=== PATIENT | male | born 1955 | race Caucasian/White ===

== ENCOUNTER → 2016-08-03 | Outpatient (CLI) | payer OTHER ==
[2016-08-03 14:33] VITALS: BP 150/67; PULSE 60; RESP 16; TEMP 98.4; BMI 50.3
[2016-08-03 15:45] LABS: EKG EKG PERFORMED
[2016-08-03 16:03] LABS: CH 27.9; CHCM 32.4; HCT 43.8 % (39.0-53.0); HDW 3.11; HGB 13.9 gm/dL (13.0-17.5); Hypochromasia Slight; MCH 27.5 pg (25.0-35.0); MCHC 31.8 g/dL (31.0-37.0); MCV 86.4 fL (80.0-100.0); Mean Platelet Volume 6.9; RBC 5.07 m/uL (4.30-5.90); RDW 14.6 % (11.5-15.5); WBC 6.5 k/uL (3.8-10.6)
[2016-08-03 16:27] LABS: ALT 37 U/L (21-72); AST 21 U/L (17-59); Alkaline Phosphatase 96 U/L (38-126); Anion Gap 8 mmol/L; Blood Urea Nitrogen 18 mg/dL (9-20); Calcium 9.8 mg/dL (8.4-10.2); Carbon Dioxide 27 mmol/L (22-30); Chloride 107 mmol/L (98-107); Cholesterol 124 mg/dL (<200); Glucose 152 mg/dL (74-99); HDL Cholesterol 31 mg/dL (40-60); Iron 62 ug/dL (49-181); Non-African American GFR(MDRD) >60 (>60 ml/min/1.73 sqM); Potassium 5.1 mmol/L (3.5-5.1); Sodium 142 mmol/L (137-145); Total Bilirubin 0.5 mg/dL (0.2-1.3); Total Protein 6.9 g/dL (6.3-8.2); Triglycerides 127 mg/dL (<150)
[2016-08-03 16:36] LABS: Total Iron Binding Capacity 331 ug/dL (261-462)
[2016-08-03 16:37] LABS: % Iron Saturation 18.7 % (20-50)
[2016-08-03 17:29] LABS: Vitamin B12 466 pg/mL (239-931)
[2016-08-03 20:56] LABS: Hemoglobin A1C 9.1 % (4.2-6.1)
--- NOTE | 2016-08-30 15:29 | P.PN ---
Progress Note - Text DATE OF CONSULTATION: 08/30/2016 REASON FOR CONSULTATION: Initial bariatric evaluation. HISTORY OF PRESENT ILLNESS: The patient is a 60-year-old male who presents with a long-standing history of morbid obesity. At his height of 5 foot 8.5, his ideal body weight is 163 pounds. Today he comes at 335 pounds. His highest personal weight is 350 pounds. He is 172 pounds overweight. Her personal goal is to get down to 180 pounds. He has tried dieting on his own including drinking specialty drinks. He has lost as much as 50 pounds. He has regained all of his weight. He has developed insulin dependent diabetes between 5-10 years now. He is also developed obstructive sleep apnea. He states that obesity runs in his family. He reports developing lower back pain including knee pain from his weight. He has also developed obstructive sleep apnea He has tried weight loss with minimal success with caloric restriction. He comes in with troubles with family history of gallbladder disease and a sister as well as his mother. He has family history of Crohn's disease and his nephew. He denies any personal history of chronic diarrhea. He denies gastrointestinal cancer, DVTs or pulmonary embolisms. He comes in for evaluation for a Miller-en- Y gastric bypass. PAST MEDICAL HISTORY: 1. Insulin-dependent diabetes type 2. 2. Hypertensive heart disease. 3. Morbid obesity. 4. Osteoarthritis of the bilateral hips. 5. Osteoarthritis of the bilateral knees. 6. Hyperlipidemia. 7. Obstructive sleep apnea. PAST SURGICAL HISTORY: 1. Denies any upper endoscopies. 2. Denies any abdominal surgeries. HOME MEDICATIONS: 1. Lasix. 2. Amlodipine/Olmesartan 3. Metoprolol. 4. Lantus. 5. Glargine. 6. NovoLog. 7. Lipitor. ALLERGIES: None. SOCIAL HISTORY: No active tobacco use. FAMILY HISTORY: Denies any DVTs, pulmonary embolisms in family. Denies any ulcerative colitis disease. Has Crohn's in his nephew. Family history of gallbladder disease. Family history of morbid obesity. REVIEW OF ORGAN SYSTEMS: CONSTITUTIONAL: At his height of 5 foot 8.5, his ideal body weight is 163 pounds. Today he comes at 335 pounds. His highest personal weight is 350 pounds. He is 172 pounds overweight. HEENT: Denies any active troubles with vision or hearing. ENDOCRINE: Has diabetes. No hypothyroidism. CARDIOVASCULAR: No reports of palpitations or heart attacks or chest pain. He is on 3 different medications to control blood pressure. RESPIRATORY: Has daytime somnolence including snoring. Has obstructive sleep apnea. No recent asthma. GI: Denies any bright red blood per rectum, diarrhea or constipation. Has intermittent heartburn. MUSCULOSKELETAL: Describes generalized muscle aches. Has osteoarthritis of the knees. NEURO: There were no reports of headaches or seizure disorders. PSYCH: No depression. No suicidal ideation. No anxiety. HEMATOLOGIC: Denies any abnormal bleeding or bruising. PHYSICAL EXAM: VITAL SIGNS: height 5 foot 8.5 inches, weight 335 pounds. BMI 50.3. Vital Signs Temp 98.4 F 08/03/16 14:28 Pulse 60 08/03/16 14:28 Resp 16 08/03/16 14:28 BP 150/67 08/03/16 14:28 Pulse Ox GENERAL: Well-developed male in no acute distress. HEENT: No scleral icterus. Extraocular was grossly intact. No nasal drainage. NECK: Supple without lymphadenopathy. CHEST: Nonlabored respirations with equal bilateral excursions. CARDIOVASCULAR: Regular rate. Distal 2+ pulses. ABDOMEN: Obese, soft, nontender, nondistended. MUSCULOSKELETAL: No clubbing, cyanosis. Gross strength 5/5 distal lower extremities. 2+ pitting edema. NEURO: No focal or lateralizing signs. Cranial nerves 2 through 12 grossly within normal limits. PSYCH: Appropriate affect. Alert and oriented to person, place and time. ASSESSMENT: 1. Morbid obesity due to excess calories. 2. Body mass index of 50.3. 3. Insulin-dependent diabetes type 2. 4. Hypertensive heart disease with cardiomyopathy. 5. Hyperlipidemia. 6. Family history of gallbladder disorder. 7. Family history of Crohn's disease. 8. Family history of morbid obesity. 9. Osteoarthritis of the bilateral knees. 10. Obstructive sleep apnea. 11. Vitamin D deficiency. PLAN: 1. I have recommended that he proceed with an upper endoscopy as he has history of reflux disease. 2. Per insurance guidelines, medical supervised weight loss was described. Also recommend food and exercise journal. 3. Recommend a bariatric metabolic panel to evaluate for micro, including macronutrient deficiencies. 4. Dietary surveillance and counseling was reviewed. I have asked her to increase protein intake to at least 75 grams daily. 5. Recommend follow-up after upper endoscopy. 6. Recommend cardiac risks assessment and disease in at least 3 different medications to control blood pressure. 7. Recommend medical risk assessment. 8. Psych assessment per insurance guidelines. 9. The [place] bariatric surgery collaborative data including benefits and risks of the sleeve, band, Miller-en-Y gastric bypass were described in detail. Co-morbidity resolution was also reviewed. Complications of each was also reviewed. Patient has elected for evaluation of a gastric bypass. Thank you for this consultation. Laboratory Last Values WBC 6.5 k/uL (3.8-10.6) 08/03/16 15:39 RBC 5.07 m/uL (4.30-5.90) 08/03/16 15:39 Hgb 13.9 gm/dL (13.0-17.5) 08/03/16 15:39 Hct 43.8 % (39.0-53.0) 08/03/16 15:39 MCV 86.4 fL (80.0-100.0) 08/03/16 15:39 MCH 27.5 pg (25.0-35.0) 08/03/16 15:39 MCHC 31.8 g/dL (31.0-37.0) 08/03/16 15:39 RDW 14.6 % (11.5-15.5) 08/03/16 15:39 Plt Count 280 k/uL (150-450) 08/03/16 15:39 Hypochromasia Slight 08/03/16 15:39 Sodium 142 mmol/L (137-145) 08/03/16 15:39 Potassium 5.1 mmol/L (3.5-5.1) 08/03/16 15:39 Chloride 107 mmol/L (98-107) 08/03/16 15:39 Carbon Dioxide 27 mmol/L (22-30) 08/03/16 15:39 Anion Gap 8 mmol/L 08/03/16 15:39 BUN 18 mg/dL (9-20) 08/03/16 15:39 Creatinine 1.00 mg/dL (0.66-1.25) 08/03/16 15:39 Est GFR (MDRD) Af Amer >60 (>60 ml/min/1.73 sqM) 08/03/16 15:39 Est GFR (MDRD) Non-Af >60 (>60 ml/min/1.73 sqM) 08/03/16 15:39 Glucose 152 mg/dL (74-99) H 08/03/16 15:[address] Glu mg/dL 214 mg/dL 08/03/16 15:39 Hemoglobin A1c 9.1 % (4.2-6.1) H 08/03/16 15:39 Calcium 9.8 mg/dL (8.4-10.2) 08/03/16 15:39 Iron 62 ug/dL (49-181) 08/03/16 15:39 TIBC 331 ug/dL (261-462) 08/03/16 15:39 % Saturation 18.7 % (20-50) L 08/03/16 15:39 Ferritin 69 ng/mL (18-464) 08/03/16 15:39 Total Bilirubin 0.5 mg/dL (0.2-1.3) 08/03/16 15:39 AST 21 U/L (17-59) 08/03/16 15:39 ALT 37 U/L (21-72) 08/03/16 15:39 Alkaline Phosphatase 96 U/L (38-126) 08/03/16 15:39 Total Protein 6.9 g/dL (6.3-8.2) 08/03/16 15:39 Albumin 4.2 g/dL (3.5-5.0) 08/03/16 15:39 Triglycerides 127 mg/dL (<150) 08/03/16 15:39 Cholesterol 124 mg/dL (<200) 08/03/16 15:39 LDL Cholesterol, Calc 68 mg/dL (0-99) 08/03/16 15:39 HDL Cholesterol 31 mg/dL (40-60) L 08/03/16 15:39 Vitamin B1 78 ug/L (38-122) 08/03/16 15:39 Vitamin B12 466 pg/mL (239-931) 08/03/16 15:39 Vitamin D 25-Hydroxy 18.8 ng/mL (30.0-100.0) L 08/03/16 15:39 Folate >20.00 ng/mL (>2.75) 08/03/16 15:39 TSH 1.270 mIU/L (0.465-4.680) 08/03/16 15:39 EKG EKG PERFORMED 08/03/16 15:39
== END | disposition home or self-care (01) ==
LOC: BARWHC3 13:47
PROVIDERS: ATTEND Surgery Plastic and Reconstructive Surgery
DX: Z48.815 Encounter for surgical aftercare following surgery on the digestive system (principal); E66.01 Morbid (severe) obesity due to excess calories; E11.9 Type 2 diabetes mellitus without complications; I11.9 Hypertensive heart disease without heart failure; I42.9 Cardiomyopathy, unspecified; E78.5 Hyperlipidemia, unspecified; G47.33 Obstructive sleep apnea (adult) (pediatric); M17.0 Bilateral primary osteoarthritis of knee; E44.0 Moderate protein-calorie malnutrition; G47.30 Sleep apnea, unspecified; D50.8 Other iron deficiency anemias; E89.1 Postprocedural hypoinsulinemia; E55.9 Vitamin D deficiency, unspecified; Z68.43 Body mass index [BMI] 50.0-59.9, adult; Z98.84 Bariatric surgery status; Z79.4 Long term (current) use of insulin; Z79.899 Other long term (current) drug therapy
CPT/HCPCS: 80053; 80061; 82306; 82607; 82728; 82746; 83036; 83540; 83550; 84425; 84443; 85027; 93005; 99201

== ENCOUNTER 2019-07-13 07:20 | Inpatient (IN) | payer MEDICAID, OTHER ==
--- NOTE | 2019-07-13 07:35 | ED ---
General Adult HPI - General Chief complaint: Shortness of Breath Stated complaint: Pneumonia Time Seen by Provider: 07/13/19 07:21 Source: patient, RN notes reviewed, old records reviewed (Reviewed records from [facility]) Mode of arrival: EMS Limitations: no limitations - History of Present Illness Initial comments: Patient is a pleasant 63-year-old male presenting to the emergency Department as a transfer from [facility]. Patient was transferred with concern for viral pneumonia. Chest x-ray shows bilateral lower infiltrates. Patient had O2 saturation of 84%. Patient complains of dyspnea over the past few days. Patient does have mild cough with clear sputum. Patient denies fevers. No chest pain. Patient does have some leg swelling however this is chronic and improved with Lasix provided prior to transfer. Patient was also given Rocephin and azithromycin prior to transfer. A portable he was tested negative for buckley virus - Related Data Home Medications Medication Instructions Recorded Confirmed Atorvastatin [Lipitor] 80 mg PO DAILY 08/03/16 08/04/16 Furosemide [Lasix] 40 mg PO DAILY 08/03/16 08/04/16 Insulin Aspart [NovoLOG Flexpen] 25 units SQ AC-TID 08/03/16 08/04/16 Insulin Glargine [Lantus] 55 unit SQ BID 08/03/16 08/04/16 Metoprolol Tartrate [Lopressor] 200 mg PO BID 08/03/16 08/04/16 amLODIPine BES/OLMESARTAN MED 1 each PO DAILY 08/03/16 08/04/16 [amLODIPine BES/OLMESARTAN MED 10-20 mg] Insulin Degludec [Tresiba 100 unit SQ DAILY 08/04/16 08/04/16 Flextouch U-200] Allergies Allergy/AdvReac Type Severity Reaction Status Date / Time No Known Allergies Allergy Verified 08/03/16 14:54 Review of Systems ROS Statement: Those systems with pertinent positive or pertinent negative responses have been documented in the HPI. ROS Other: All systems not noted in ROS Statement are negative. Constitutional: Denies: fever Eyes: Denies: eye pain ENT: Denies: ear pain Respiratory: Reports: cough, dyspnea Cardiovascular: Denies: chest pain Endocrine: Denies: fatigue Gastrointestinal: Denies: abdominal pain Genitourinary: Denies: dysuria Musculoskeletal: Denies: back pain Skin: Denies: rash Neurological: Denies: weakness Past Medical History Past Medical History: Diabetes Mellitus, Hyperlipidemia, Hypertension, Pneumonia, Sleep Apnea/CPAP/BIPAP History of Any Multi-Drug Resistant Organisms: None Reported Past Surgical History: Appendectomy Past Anesthesia/Blood Transfusion Reactions: No Reported Reaction Past Psychological History: No Psychological Hx Reported Smoking Status: Never smoker Past Alcohol Use History: None Reported Past Drug Use History: None Reported - Past Family History Mother Family Medical History: Cancer Additional Family Medical History / Comment(s): ovarian ca General Exam Limitations: no limitations General appearance: alert, in no apparent distress Head exam: Present: normocephalic Eye exam: Present: normal appearance Neck exam: Present: normal inspection Respiratory exam: Present: decreased breath sounds. Absent: respiratory distress Cardiovascular Exam: Present: regular rate, normal rhythm GI/Abdominal exam: Present: soft. Absent: tenderness Extremities exam: Present: pedal edema (+3 bilateral). Absent: calf tenderness Back exam: Present: normal inspection Neurological exam: Present: alert Psychiatric exam: Present: normal affect, normal mood Skin exam: Present: normal color Medical Decision Making - Medical Decision Making Despite negative testing there is still concern for coronavirus. Case was discussed in detail with Dr. Anthony, who will admit covering for Dr. Wilson. Patient is made aware of plan. Cardiology will also be placed on consult for component of congestive heart failure. Disposition Clinical Impression: Pneumonia, Congestive heart failure Disposition: ADMITTED IP TO THIS HOSP Is patient prescribed a controlled substance at d/c from ED?: No Referrals: Lani Pierre MD [Primary Care Provider] - 1-2 days Decision Time: 07:40
[2019-07-13] MEDS ORDERED: IPRATROPIUM-ALBUTEROL 3 ML NEB INHALATION PRN (07:40)
[2019-07-13] MEDS ORDERED: PNEUMONIA PROTOCOL UTILIZED 1 EACH MISC PO PRN (07:40)
[2019-07-13] MEDS ORDERED: ASPIRIN 325 MG TAB PO STA (07:40)
[2019-07-13 07:51] LABS: Glucose,Whole Blood 309 mg/dL (75-99)
[2019-07-13 08:32] LABS: C Reactive Protein 8.5 mg/L (<10.0); Magnesium 1.9 mg/dL (1.6-2.3)
--- NOTE | 2019-07-13 08:55 | XR ---
EXAMINATION TYPE: XR chest 1V portable DATE OF EXAM: 07/13/2019 HISTORY: Suspected COVID-19 pneumonia. REFERENCE: NONE. FINDINGS: Heart size upper limits of normal. There are patchy infiltrates in the right chest. Left matt ng is relatively clear. Pleural space are clear. IMPRESSION: 1. BORDERLINE CARDIOMEGALY. 2. PATCHY RIGHT-SIDED AIRSPACE DISEASE, LIKELY REPRESENTING PNEUMONIA.
[2019-07-13 10:12] LABS: Glucose,Whole Blood 312 mg/dL (75-99)
[2019-07-13] MEDS: INSULIN ASPART (NovoLOG) 100 UNIT/ML VIAL SQ SCH ×5 (10:28→20:09)
[2019-07-13] MEDS: CHOLECALCIFEROL 400 UNIT TAB PO SCH (10:29)
[2019-07-13] MEDS: HEPARIN SODIUM,PORCINE 5,000 UNIT/ML 1 ML VIAL SQ SCH ×2 (10:29→16:13)
[2019-07-13] MEDS: ASCORBIC ACID 500 MG TAB PO SCH ×2 (10:29→20:09)
[2019-07-13] MEDS: NITROGLYCERIN OINT 1 INCH/GM PACKET TOPICAL SCH ×2 (10:29→13:08)
[2019-07-13] MEDS: LOSARTAN 50 MG TAB PO SCH (11:04)
[2019-07-13] MEDS: METOPROLOL TARTRATE 50 MG TAB PO SCH ×2 (11:04→20:10)
[2019-07-13] MEDS: ATORVASTATIN 80 MG TAB PO SCH (11:04)
[2019-07-13] MEDS: amLODIPine 10 MG TAB PO SCH (11:04)
[2019-07-13 12:22] LABS: Glucose,Whole Blood 338 mg/dL (75-99)
[2019-07-13] MEDS ORDERED: INSULIN ASPART 25 UNIT SQ SCH (12:30)
[2019-07-13] MEDS: FUROSEMIDE 10 MG/ML 4 ML VIAL IV SCH ×2 (12:59→20:09)
[2019-07-13] MEDS ORDERED: INSULIN NPH 300 UNIT/3 ML VIAL SQ SCH (13:00)
[2019-07-13 16:24] LABS: Ferritin 158.4 ng/mL (22.0-322.0)
--- NOTE | 2019-07-13 17:05 | P.HPIM ---
History of Present Illness H&P Date: 07/13/19 Chief Complaint: Shortness of breath History of presenting complaint: This is a pleasant [address] Teresita Pierre. Chronic stable medical conditions include diabetes mellitus type 2, hypertension, hyperlipidemia, obstructive sleep apnea uses CPAP machine. For 2 days patient has been getting short winded slowly getting progressive. Yesterday evening the power went out and uses CPAP. Became more short of breath. Presented to outside hospital. Patient has a very mild cough. And empiric of some scleral from this morning. No fever no chills. Appetite is okay. Has a bowel movement. Denies any pain. Patient presented to Dr. [facility] where he was transferred here. X-ray of the other facility showed bilateral infiltrates. Had oxygen saturation of 84%. Patient has mild chronic lower extremity swelling. Patient was tested negative for COVID-19. This morning feels a bit better. Did tolerate some diet. Review of systems: GEN.: Tired EYES: None HEENT: None NECK: None RESPIRATORY: As above CARDIOVASCULAR: None GASTROINTESTINAL: None GENITOURINARY: None MUSCULOSKELETAL: None LYMPHATICS: None HEMATOLOGICAL: None PSYCHIATRY: None NEUROLOGICAL: None Past medical history to include: Diabetes mellitus type 2, hyperlipidemia, hypertension, obstructive sleep apnea uses CPAP, morbid obesity. Social history: Lives alone. 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 Does not smoke or drink alcohol. Physical examination: VITAL SIGNS: Afebrile, 55, 18, 160-63, 100% on 6 L GENERAL: BMI 50.3, propped up in bed, awake not in distress. EYES: Pupils equal. Conjunctiva normal. HEENT: External appearance of nose and ears normal, oral cavity grossly normal. NECK: JVD not raised; masses not palpable. HEART: First and second heart sounds are normal; no edema. LUNGS: Respiratory rate increased, decreased breath sounds. ABDOMEN: Soft, nontender, liver spleen not palpable, no masses palpable. PSYCH: Alert and oriented x3; mood and affect normal. NEUROLOGICAL: Cranial nerves grossly intact; no facial asymmetry, power and sensation grossly intact. LYMPHATICS: No lymph nodes palpable in the axilla and neck INVESTIGATIONS, reviewed in the clinical context: Blood work from [facility] shows: White count 7.6 hemoglobin 13.7 platelets 213 sodium 139 potassium 4.2 bun 20 creatinine 1.2 with a negative EKG tracing personally reviewed by me shows sinus rhythm proBNP 2-3 chest x-ray bilateral infiltrates Accu-Cheks ears show 309, 312, CRP 8.5 pro calcitonin 0.02 Chest x-ray film personally reviewed by me shows-basilar infiltrates Assessment: -This patient is a 2 days of progressive shortness of breath and chest x-ray with infiltrates. COVID 19 was ruled out. This could be false negative. We'll repeat the testing here. Also podiatry the patient for atypical pneumonia was azithromycin -Diabetes mellitus type 2 uncontrolled with hyperglycemia -Hyperlipidemia -Essential hypertension -Morbid obesity BMI 50.3 Plan: Patient's home medications resumed. Accu-Cheks before. Repeat the COVID testing. Get a pulmonary opinion. Care was discussed with the patient. Questions were answered. Mother patient's pulse ox is improved later this morning to 98% on room air. Past Medical History Past Medical History: Diabetes Mellitus, Hyperlipidemia, Hypertension, Pneumonia, Sleep Apnea/CPAP/BIPAP History of Any Multi-Drug Resistant Organisms: None Reported Past Surgical History: Appendectomy Past Anesthesia/Blood Transfusion Reactions: No Reported Reaction Past Psychological History: No Psychological Hx Reported Smoking Status: Never smoker Past Alcohol Use History: None Reported Past Drug Use History: None Reported - Past Family History Mother Family Medical History: Cancer Additional Family Medical History / Comment(s): ovarian ca Father Family Medical History: Myocardial Infarction (NH) Medications and Allergies Home Medications Medication Instructions Recorded Confirmed Type Atorvastatin [Lipitor] 80 mg PO DAILY 08/03/16 07/13/19 History Furosemide [Lasix] 40 mg PO DAILY 08/03/16 07/13/19 History Metoprolol Tartrate [Lopressor] 200 mg PO BID 08/03/16 07/13/19 History Aspirin EC [Ecotrin Low Dose] 81 mg PO DAILY 07/13/19 07/13/19 History Dulaglutide [Trulicity] 1.5 mg SQ SA 07/13/19 07/13/19 History Insulin Glargine,Hum.rec.anlog 90 units SQ HS 07/13/19 07/13/19 History [Toujeo Solostar] Insulin Lispro [humaLOG Kwikpen] 25 unit SQ AC-TID 07/13/19 07/13/19 History amLODIPine BESYLATE/BENAZEPRIL 1 cap PO DAILY 07/13/19 07/13/19 History [amLODIPine BESYLATE/BENAZEPRIL 10-20 mg] Allergies Allergy/AdvReac Type Severity Reaction Status Date / Time No Known Allergies Allergy Verified 07/13/19 13:46 Physical Exam Vitals: Vital Signs Temp Pulse Resp BP Pulse Ox 07/13/19 08:36 98.2 F 07/13/19 08:30 56 L 22 167/72 100 07/13/19 08:00 56 L 18 168/63 100 07/13/19 07:30 55 L 18 183/65 100 Intake and Output 07/12/19 07/13/19 07/13/19 22:59 06:59 14:59 Other: Weight 156.489 kg Results Labs: Abnormal Lab Results - Last 24 Hours (Table) 07/13/19 07/13/19 07/13/19 Range/Units 07:50 07:58 10:09 POC Glucose (mg/dL) 309 H 312 H (75-99) mg/dL Lactate Dehydrogenase 887 H (313-618) U/L
[2019-07-13 17:13] LABS: Glucose,Whole Blood 336 mg/dL (75-99)
[2019-07-13] MEDS: ENOXAPARIN 40 MG/0.4 ML SYRINGE SQ SCH (17:28)
[2019-07-13 19:59] LABS: Glucose,Whole Blood 341 mg/dL (75-99)
[2019-07-13] MEDS: MELATONIN 5 MG TABLET PO SCH (20:09)
[2019-07-13] MEDS: INSULIN DETEMIR (LEVEMIR) 100 UNIT/ML SYR SQ SCH (20:09)
[2019-07-13] MEDS ORDERED: INSULIN GLARGINE HUM REC ANLOG 80 UNIT SQ SCH (21:00)
[2019-07-14] MEDS: FUROSEMIDE 10 MG/ML 4 ML VIAL IV SCH (05:56)
[2019-07-14 07:15] LABS: Glucose,Whole Blood 144 mg/dL (75-99)
--- NOTE | 2019-07-14 07:25 | XR ---
EXAMINATION TYPE: XR chest 1V portable DATE OF EXAM: 07/14/2019 HISTORY: pneumonia. REFERENCE: Previous study dated 07/13/2019. FINDINGS: The heart is mildly prominent. Patchy right-sided airspace disease persists but has improve d. No definite pleural fluid is seen. IMPRESSION: 1. CARDIOMEGALY. 2. IMPROVED AERATION, RIGHT LUNG.
[2019-07-14] MEDS: LOSARTAN 50 MG TAB PO SCH (07:53)
[2019-07-14] MEDS: INSULIN ASPART (NovoLOG) 100 UNIT/ML VIAL SQ SCH ×7 (07:53→20:53)
[2019-07-14] MEDS: ASCORBIC ACID 500 MG TAB PO SCH ×2 (07:53→20:52)
[2019-07-14] MEDS: CHOLECALCIFEROL 400 UNIT TAB PO SCH (07:54)
[2019-07-14] MEDS: AZITHROMYCIN 500 MG TAB PO SCH (07:54)
[2019-07-14] MEDS: ENOXAPARIN 40 MG/0.4 ML SYRINGE SQ SCH (07:54)
[2019-07-14] MEDS: ATORVASTATIN 80 MG TAB PO SCH (07:54)
[2019-07-14] MEDS: amLODIPine 10 MG TAB PO SCH (07:54)
[2019-07-14] MEDS ORDERED: ASPIRIN 325 MG TAB PO SCH (08:00)
[2019-07-14 08:08] LABS: ALT 25 U/L (4-49); AST 22 U/L (17-59); African American GFR (CKD) >90 (>60 ml/min/1.73 sqM); Albumin 3.5 g/dL (3.5-5.0); Alkaline Phosphatase 75 U/L (38-126); Anion Gap 4 mmol/L; Blood Urea Nitrogen 28 mg/dL (9-20); C Reactive Protein 16.3 mg/L (<10.0); Calcium 9.2 mg/dL (8.4-10.2); Carbon Dioxide 28 mmol/L (22-30); Chloride 107 mmol/L (98-107); Glucose 137 mg/dL (74-99); Non-African American GFR(CKD) 79 (>60 ml/min/1.73 sqM); Potassium 4.1 mmol/L (3.5-5.1); Sodium 139 mmol/L (137-145); Total Bilirubin 0.3 mg/dL (0.2-1.3); Total Protein 6.2 g/dL (6.3-8.2)
[2019-07-14 08:43] LABS: Basophils % (A) 0 %; Eosinophils # (A) 0.1 k/uL (0-0.7); Eosinophils % (A) 0 %; HCT 38.8 % (39.0-53.0); HGB 12.8 gm/dL (13.0-17.5); Lymphocytes # (A) 1.6 k/uL (1.0-4.8); Lymphocytes % (A) 14 %; MCH 28.9 pg (25.0-35.0); MCHC 33.1 g/dL (31.0-37.0); MCV 87.4 fL (80.0-100.0); Mean Platelet Volume 8.1; Monocytes # (A) 0.7 k/uL (0-1.0); Monocytes % (A) 6 %; Neutrophils # (A) 8.9 k/uL (1.3-7.7); Neutrophils % (A) 79 %; Platelet Count 219 k/uL (150-450); RBC 4.44 m/uL (4.30-5.90); WBC 11.3 k/uL (3.8-10.6)
--- NOTE | 2019-07-14 10:36 | P.CRDCN ---
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 Patient relates that he was seen [facility] greater than 10 years ago. The patient presented initially to [facility] for evaluation of shortness of breath. Patient states that his electricity went out and thus his CPAP started working and he developed significant shortness of breath. Apparently his pulse ox was down to 84%. He was having a cough with clear sputum. No fever. Patient denies having any chest pain. He does have chronic edema to the lower extremities. COVID-19 testing done at [facility] is reported as negative. He was transferred to [facility] for further evaluation and treatment. Initial chest x-ray showed borderline cardiomegaly. Patchy right-sided airspace disease likely representing pneumonia. EKG reveals sinus mechanism. repeat chest x-ray this morning reveals improved aeration of the right lung. Patient has been started on IV Lasix, IV antibiotics. Subsequently d-dimer came back elevated at 0.89 and CTA of the chest ordered to rule out pulmonary embolism. Patient has been bradycardic and noted to be on metoprolol 200 mg twice daily. Patient's nurse did confirm this prescription through his pharmacy but patient states he does not think that he takes 200mg. Patient is a lifelong nonsmoker. Review Of Systems: Constitutional: No fever, no chills, no night sweats. No weight change. No weakness, fatigue or lethargy. No daytime sleepiness. EENT: No headache. No blurred vision or double vision, no loss of vision. No loss of Hearing, no ringing in the ears, no dizziness. No nasal drainage or congestion. No epistaxis. No sore throat. Lungs: Reports shortness of breath, reports cough, reports sputum production. No wheezing. Cardiovascular: No chest pain, no lower extremity edema. No palpitations. No paroxysmal nocturnal dyspnea. No orthopnea. No lightheadedness or dizziness. No syncopal episodes. Abdominal: No abdominal pain. No nausea, vomiting. No diarrhea. No constip ation. No bloody or tarry stools.. No loss of appetite. Genitourinary: No dysuria, increased frequency, urgency. No urinary retention. Musculoskeletal: No myalgias. No muscle weakness, no gait dysfunction, no frequent falls. No back pain. No neck pain. Integumentary: No wounds, no lesions. No rash or pruritus. No unusual bruising. No change in hair or nails. Neurologic: No aphasia. No facial droop. No change in mentation. No head injury. No headache. No paralysis. No paresthesia. Psychiatric: No depression. No anxiety. No mood swings. Endocrine: No abnormal blood sugars. No weight change. No excessive sweating or thirst. No cold intolerance. No weight change. Physical examination: Gen: This is a 63-year-old morbidly obese male. He has significant coronary appears to be in no acute distress. No respiratory distress is noted. VS: afebrile, heart rate 47, blood pressure 162/74 pulse ox 93% on room air. HEENT: Head is atraumatic, normocephalic. Pupils equal, round. Sclerae is anicteric. NECK: Supple. No JVD. No lymphadenopathy. No thyromegaly. LUNGS: Decreased breath sounds bilaterally No wheezes or rhonchi. No intercostal retractions. HEART: Regular rate and rhythm. No murmur. No chest wall tenderness. ABDOMEN: Soft. Bowel sounds are present. No masses. No tenderness. EXTREMITIES: No pedal edema. No calf tenderness. NEUROLOGICAL: Patient is awake, alert and oriented x3. Cranial nerves 2 through 12 are grossly intact. Assessment: Pneumonia No clinical evidence of heart failure Elevated d-dimer Bradycardia Diabetes mellitus type 2 Hypertension Hyperlipidemia Morbid obesity Obstructive sleep apnea Plan: Obtain CTA of the chest to rule out pulmonary embolism Reduce metoprolol to 50 mg twice daily with parameters to hold if heart rate less than 55 Continue amlodipine and losartan Continue Lipitor Continue antibiotics Obtain 2-D echocardiogram and Doppler study to assess cardiac structure and function Further recommendations to follow based upon clinical course Thank you kindly for this consultation Nurse practitioner note has been reviewed, I agree with documented findings and plan of care. Patient was seen and examined. Past Medical History Past Medical History: Diabetes Mellitus, Hyperlipidemia, Hypertension, Pneumonia, Sleep Apnea/CPAP/BIPAP History of Any Multi-Drug Resistant Organisms: None Reported Past Surgical History: Appendectomy Past Anesthesia/Blood Transfusion Reactions: No Reported Reaction Past Psychological History: No Psychological Hx Reported Smoking Status: Never smoker Past Alcohol Use History: None Reported Past Drug Use History: None Reported - Past Family History Mother Family Medical History: Cancer Additional Family Medical History / Comment(s): ovarian ca Father Family Medical History: Myocardial Infarction ([place]) Medications and Allergies Home Medications Medication Instructions Recorded Confirmed Type Atorvastatin [Lipitor] 80 mg PO DAILY 08/03/16 07/13/19 History Furosemide [Lasix] 40 mg PO DAILY 08/03/16 07/13/19 History Metoprolol Tartrate [Lopressor] 200 mg PO BID 08/03/16 07/13/19 History Aspirin EC [Ecotrin Low Dose] 81 mg PO DAILY 07/13/19 07/13/19 History Dulaglutide [Trulicity] 1.5 mg SQ SA 07/13/19 07/13/19 History Insulin Glargine,Hum.rec.anlog 90 units SQ HS 07/13/19 07/13/19 History [Toujeo Solostar] Insulin Lispro [humaLOG Kwikpen] 25 unit SQ AC-TID 07/13/19 07/13/19 History amLODIPine BESYLATE/BENAZEPRIL 1 cap PO DAILY 07/13/19 07/13/19 History [amLODIPine BESYLATE/BENAZEPRIL 10-20 mg] Allergies Allergy/AdvReac Type Severity Reaction Status Date / Time No Known Allergies Allergy Verified 07/13/19 13:46 Physical Exam Vitals: Vital Signs Temp Pulse Pulse Resp BP BP Pulse Ox 07/14/19 08:00 98.2 F 47 L 18 162/74 93 L 07/14/19 03:33 98.3 F 52 L 18 126/88 100 07/13/19 23:00 98.7 F 50 L 18 127/60 99 07/13/19 19:40 98.3 F 58 L 18 164/74 96 07/13/19 19:30 18 07/13/19 16:00 96.7 F L 55 L 20 165/75 97 07/13/19 11:10 98.5 F 97 18 150/58 98 07/13/19 09:20 98.3 F 64 18 162/66 99 07/13/19 08:36 98.2 F 07/13/19 08:30 56 L 22 167/72 100 Intake and Output 07/13/19 07/14/19 07/14/19 22:59 06:59 14:59 Intake Total 600 Balance 600 Intake: Oral 600 Other: Weight 153.9 kg Results 07/14/19 07:24 07/14/19 07:24 Cardiac Enzymes 07/13/19 07/14/19 Range/Units 07:58 07:24 AST 22 (17-59) U/L Lactate Dehydrogenase 887 H (313-618) U/L Comprehensive Metabolic Panel 07/14/19 Range/Units 07:24 Sodium 139 (137-145) mmol/L Potassium 4.1 (3.5-5.1) mmol/L Chloride 107 (98-107) mmol/L Carbon Dioxide 28 (22-30) mmol/L BUN 28 H (9-20) mg/dL Creatinine 1.01 (0.66-1.25) mg/dL Glucose 137 H (74-99) mg/dL Calcium 9.2 (8.4-10.2) mg/dL AST 22 (17-59) U/L ALT 25 (4-49) U/L Alkaline Phosphatase 75 (38-126) U/L Total Protein 6.2 L (6.3-8.2) g/dL Albumin 3.5 (3.5-5.0) g/dL Current Medications Generic Name Dose Route Start Last Admin Trade Name Freq PRN Reason Stop Dose Admin Albuterol/Ipratropium 3 ml 07/13/19 07:40 Duoneb 0.5 Mg-3 Mg/3 Ml Soln INHALATION RT-Q4H PRN shortness of breath Amlodipine Besylate 10 mg 07/13/19 10:45 07/14/19 07:54 Norvasc PO 10 mg DAILY [facility] Administration Ascorbic Acid 500 mg 07/13/19 09:00 07/14/19 07:53 Vitamin C PO 500 mg BID [facility] Administration Aspirin 325 mg 07/14/19 08:00 07/14/19 07:54 Aspirin PO 325 mg DAILY [facility] Administration Atorvastatin Calcium 80 mg 07/13/19 10:45 07/14/19 07:54 Lipitor PO 80 mg DAILY [facility] Administration Azithromycin 500 mg 07/14/19 08:00 07/14/19 07:54 Zithromax PO 500 mg DAILY [facility] Administration Cholecalciferol 400 unit 07/13/19 09:00 07/14/19 07:54 Vitamin D3 PO 400 unit DAILY [facility] Administration Enoxaparin Sodium 40 mg 07/13/19 17:15 07/14/19 07:54 Lovenox SQ 40 mg DAILY [facility] Administration Furosemide 40 mg 07/13/19 13:00 07/14/19 05:56 Lasix IV 40 mg Q8H [facility] Administration Ceftriaxone Sodium 1 gm/ 50 mls @ 100 mls/hr 07/13/19 08:00 07/14/19 07:54 Sodium Chloride IVPB 07/17/19 08:01 100 mls/hr Q24HR [facility] Administration Insulin Aspart 0 unit 07/13/19 12:30 07/14/19 07:53 Novolog SQ 2 unit ACHS [facility] Administration Protocol Insulin Aspart 25 unit 07/13/19 11:00 07/14/19 07:53 Novolog SQ 25 unit AC-TID [facility] Administration Insulin Detemir 80 unit 07/13/19 21:00 07/13/19 20:09 Levemir SQ 80 unit HS [facility] Administration Losartan Potassium 100 mg 07/13/19 11:00 07/14/19 07:53 Cozaar PO 100 mg DAILY [facility] Administration Melatonin 5 mg 07/13/19 21:00 07/13/19 20:09 Melatonin PO 5 mg HS [facility] Administration Metoprolol Tartrate 200 mg 07/13/19 10:45 07/13/19 20:10 Lopressor PO 200 mg BID [facility] Administration Miscellaneous Information 1 each 07/13/19 07:40 Pneumonia Protocol Utilized PO ONCE PRN Per Protocol Non-Formulary Medication 1.5 mg 07/20/19 09:00 Dulaglutide [Trulicity] SQ WEEKLY [facility] Sodium Chloride 10 ml 07/13/19 09:00 07/14/19 07:55 Saline Flush IV 10 ml BID [facility] Administration Intake and Output 07/13/19 07/14/19 07/14/19 22:59 06:59 14:59 Intake Total 600 Balance 600 Intake: Oral 600 Other: Weight 153.9 kg 07/14/19 07:24
[2019-07-14 11:46] VITALS: BMI 50.1
--- NOTE | 2019-07-14 11:49 | CT ---
EXAMINATION TYPE: CT angio chest DATE OF EXAM: 07/14/2019 11:39 AM COMPARISON: None. HISTORY: Elevated d-dimer CT DLP: 1038.3 mGycm Automated exposure control for dose reduction was used. CONTRAST: CTA scan of the thorax is performed with IV Contrast, patient injected with 100 mL of Isovue 370, pul monary embolism protocol. . FINDINGS: There are groundglass opacities present bilaterally, greater on the right than the left. There is no significant axillary adenopathy. There is some shotty mediastinal adenopathy. There is no evidence of pulmonary embolus. The aorta is normal in caliber without evidence of dissection. There is no pleural or pericardial flu id. The heart is mildly enlarged. Visualized portions of the upper abdomen are unremarkable. There is hypertrophic spondylosis within the spine. IMPRESSION: 1. THIS EXAMINATION IS NEGATIVE FOR PULMONARY EMBOLUS. 2. BILATERAL GROUNDGLASS OPACITIES WORSE ON THE RIGHT THAN THE LEFT. IN THE PROPER CLINICAL SITUATION INFECTION WITH COVID 19 COULD CAUSE THIS APPEARANCE. 3. MILD CARDIOMEGALY. 4. MILD DEGENERATIVE CHANGE WITHIN THE SPINE.
[2019-07-14 12:17] LABS: Glucose,Whole Blood 142 mg/dL (75-99)
[2019-07-14] MEDS: hydrALAZINE HCL 25 MG TAB PO SCH ×3 (12:39→20:52)
--- NOTE | 2019-07-14 12:59 | P.CNPUL ---
History of Present Illness Consult date: 07/14/19 Reason for consult: dyspnea History of present illness: A 66-year-old male patient, morbidly obese of the chest from an outside hospital for evaluation of shortness of breath. The patient is morbidly obese. He has a BMI 50. He has obstructive sleep apnea maintained on CPAP. He has also diabetes, hypertension and hyperlipidemia. No home oxygen. He came into the hospital because of some increased shortness of breath and mild cough. No f ever. No chills. No pleurisy. No hemoptysis. Chest x-ray showed some limited infiltration of the right lung base. His oxygen saturations dropped down to 84%. He had some mild chronic swelling lower extremities. Covert 19 evaluation was done to was negative. The patient was given Rocephin and Zithromax. Subsequent chest x-ray from today shows improvement in the right lower lobe pulmonary infiltrates and the patient is back on room air oxygen. No chest pain. No other new complaints otherwise for now. No history of asthma. Most of emphysema. No chronic lung disease or disorder. The blood work showed a low progesterone level of 0.02. EKG was within normal limits. White cell count was at 7.6. Electrolytes were all within normal limits. The d-dimer is at 0.89. ProBNP level was 247. Review of Systems Constitutional: Reports weight gain Eyes: denies as per HPI, denies blurred vision, denies bulging eye, denies decreased vision, denies diplopia, denies discharge, denies dry eye, denies irritation, denies itching, denies pain, denies photophobia, denies loss of peripheral vision, denies loss of vision, denies tunnel vision/blind spots Ears: deny: decreased hearing, ear discharge, earache, tinnitus Ears, nose, mouth and throat: Denies headache, Denies sore throat Breasts: absent: as per HPI, gynecomastia Cardiovascular: Denies chest pain, Denies shortness of breath Respiratory: Reports cough, Reports dyspnea, Reports sleep apnea Gastrointestinal: Reports as per HPI Genitourinary: Reports as per HPI Musculoskeletal: Reports as per HPI Musculoskeletal: bilateral: ankle swelling, absent: ankle pain, ankle stiffness Integumentary: Reports as per HPI Neurological: Reports as per HPI Psychiatric: Reports as per HPI Endocrine: Reports as per HPI Hematologic/Lymphatic: Reports as per HPI Allergic/Immunologic: Reports as per HPI Past Medical History Past Medical History: Diabetes Mellitus, Hyperlipidemia, Hypertension, Sleep Apnea/CPAP/BIPAP History of Any Multi-Drug Resistant Organisms: None Reported Past Surgical History: Appendectomy Past Anesthesia/Blood Transfusion Reactions: No Reported Reaction Past Psychological History: No Psychological Hx Reported Smoking Status: Never smoker Past Alcohol Use History: None Reported Past Drug Use History: None Reported - Past Family History Mother Family Medical History: Cancer Additional Family Medical History / Comment(s): ovarian ca Father Family Medical History: Myocardial Infarction ([place]) Medications and Allergies Home Medications Medication Instructions Recorded Confirmed Type Atorvastatin [Lipitor] 80 mg PO DAILY 08/03/16 07/13/19 History Furosemide [Lasix] 40 mg PO DAILY 08/03/16 07/13/19 History Metoprolol Tartrate [Lopressor] 200 mg PO BID 08/03/16 07/13/19 History Aspirin EC [Ecotrin Low Dose] 81 mg PO DAILY 07/13/19 07/13/19 History Dulaglutide [Trulicity] 1.5 mg SQ SA 07/13/19 07/13/19 History Insulin Glargine,Hum.rec.anlog 90 units SQ HS 07/13/19 07/13/19 History [Toujeo Solostar] Insulin Lispro [humaLOG Kwikpen] 25 unit SQ AC-TID 07/13/19 07/13/19 History amLODIPine BESYLATE/BENAZEPRIL 1 cap PO DAILY 07/13/19 07/13/19 History [amLODIPine BESYLATE/BENAZEPRIL 10-20 mg] Allergies Allergy/AdvReac Type Severity Reaction Status Date / Time No Known Allergies Allergy Verified 07/13/19 13:46 Physical Exam Vitals: Vital Signs Temp Pulse Resp BP Pulse Ox 07/14/19 11:25 97.7 F 51 L 16 171/73 95 07/14/19 08:00 98.2 F 47 L 18 162/74 93 L 07/14/19 03:33 98.3 F 52 L 18 126/88 100 07/13/19 23:00 98.7 F 50 L 18 127/60 99 07/13/19 19:40 98.3 F 58 L 18 164/74 96 07/13/19 19:30 18 07/13/19 16:00 96.7 F L 55 L 20 165/75 97 Intake and Output 07/13/19 07/14/19 07/14/19 22:59 06:59 14:59 Intake Total 600 Balance 600 Intake: Oral 600 Other: Weight 153.9 kg 153.9 kg Morbidly obese with a BMI 50.1 Head exam was generally normal. There was no scleral icterus or corneal arcus. Mucous membranes were moist. Neck was supple and without jugular venous distension, thyromegaly, or carotid bruits. Carotids were easily palpable bilaterally. There was no adenopathy. Mallampati class IV Lungs were clear to auscultation and percussion, and with normal diaphragmatic excursion. No wheezes or rales were noted. Cardiac exam revealed the PMI to be normally situated and sized. The rhythm was regular and no extrasystoles were noted during several minutes of auscultation. The first and second heart sounds were normal and physiologic splitting of the second heart sound was noted. There were no murmurs, rubs, clicks, or gallops. Abdomen is obese and the patient cannot be accurately palpated in terms of his organs. No direct tenderness. No rebound tenderness. No guarding. Examination of the extremities revealed easily palpable radial, femoral and pedal pulses. There was no cyanosis, clubbing or edema. Examination of the skin revealed no evidence of significant rashes, suspicious appearing nevi or other concerning lesions. Neurologically awake and alert and is no focal neurological deficit. Results - Laboratory Findings CBC and BMP: 07/14/19 07:24 07/14/19 07:24 PT/INR, D-dimer D-Dimer 0.89 mg/L FEU (<0.60) H 07/14/19 08:50 Abnormal lab findings: Abnormal Labs 07/13/19 07/13/19 07/13/19 07:50 07:58 10:09 WBC Hgb Hct Neutrophils # D-Dimer BUN Glucose POC Glucose (mg/dL) 309 H 312 H Lactate Dehydrogenase 887 H C-Reactive Protein Total Protein 07/13/19 07/13/19 07/13/19 12:07 17:01 19:57 WBC Hgb Hct Neutrophils # D-Dimer BUN Glucose POC Glucose (mg/dL) 338 H 336 H 341 H Lactate Dehydrogenase C-Reactive Protein Total Protein 07/14/19 07/14/19 07/14/19 07:13 07:24 07:24 WBC 11.3 H Hgb 12.8 L Hct 38.8 L Neutrophils # 8.9 H D-Dimer BUN 28 H Glucose 137 H POC Glucose (mg/dL) 144 H Lactate Dehydrogenase C-Reactive Protein 16.3 H Total Protein 6.2 L 07/14/19 07/14/19 08:50 12:16 WBC Hgb Hct Neutrophils # D-Dimer 0.89 H BUN Glucose POC Glucose (mg/dL) 142 H Lactate Dehydrogenase C-Reactive Protein Total Protein - Diagnostic Findings Chest x-ray: image reviewed Assessment and Plan Plan: 1 limited right lower lobe pneumonia with some mild hypoxic respiratory failure, recovered and the patient's follow-up chest x-ray shows improvement of the right lower lobe infiltrates and the patient is currently on room air oxygen. 2 acute hypoxic respiratory failure, recovered 3 morbid obesity with a BMI 50.1 4 obstructive sleep apnea maintained on CPAP 5 hypertension 6 hyperlipidemia 7 diabetes mellitus Plan Clinically improved Follow-up chest x-ray shows improvement in the right lower lobe infiltrates COVID19 evaluation came back negative May discharge home within next 24 hours on oral antibiotics, the pro-calcitonin level is low Continue use of CPAP Encourage weight loss Resume home medications
--- NOTE | 2019-07-14 16:05 | P.PN ---
Progress Note - Text Progress Note Date: 07/14/19 Chief Complaint: Shortness of breath History of presenting complaint: This is a pleasant [address] Teresita Pierre. Chronic stable medical conditions include diabetes mellitus type 2, hypertension, hyperlipidemia, obstructive sleep apnea uses CPAP machine. For 2 days patient has been getting short winded slowly getting progressive. Yesterday evening the power went out and uses CPAP. Became more short of breath. Presented to outside hospital. Patient has a very mild cough. And empiric of some scleral from this morning. No fever no chills. Appetite is okay. Has a bowel movement. Denies any pain. Patient presented to Dr. [facility] where he was transferred here. X-ray of the other facility showed bilateral infiltrates. Had oxygen saturation of 84%. Patient has mild chronic lower extremity swelling. Patient was tested negative for COVID-19. This morning feels a bit better. Did tolerate some diet. Admitted with-pneumonia. Started on ceftriaxone and Zithromax. Today-patient is feeling much better. Eating well. Pulse ox is good on room air. Up to the bathroom. Minimal respiratory symptoms. Review of systems: Was done for constitutional, cardiovascular, GI, pulmonary. relevant finding as above Active Medications Albuterol/Ipratropium (Duoneb 0.5 Mg-3 Mg/3 Ml Soln) 3 ml INHALATION RT-Q4H PRN PRN Reason: shortness of breath Amlodipine Besylate (Norvasc) 10 mg PO DAILY [facility] Last Admin: 07/14/19 07:54 Dose: 10 mg Documented by: Ascorbic Acid (Vitamin C) 500 mg PO BID [facility] Last Admin: 07/14/19 07:53 Dose: 500 mg Documented by: Aspirin (Aspirin) 81 mg PO DAILY [facility] Atorvastatin Calcium (Lipitor) 80 mg PO DAILY [facility] Last Admin: 07/14/19 07:54 Dose: 80 mg Documented by: Azithromycin (Zithromax) 500 mg PO DAILY [facility] Last Admin: 07/14/19 07:54 Dose: 500 mg Documented by: Cholecalciferol (Vitamin D3) 400 unit PO DAILY [facility] Last Admin: 07/14/19 07:54 Dose: 400 unit Documented by: Enoxaparin Sodium (Lovenox) 40 mg SQ DAILY [facility] Last Admin: 07/14/19 07:54 Dose: 40 mg Documented by: Furosemide (Lasix) 40 mg PO DAILY [facility] Hydralazine HCl (Apresoline) 25 mg PO TID [facility] Last Admin: 07/14/19 15:04 Dose: 25 mg Documented by: Ceftriaxone Sodium 1 gm/ (Sodium Chloride) 50 mls @ 100 mls/hr IVPB Q24HR [facility] Stop: 07/17/19 08:01 Last Admin: 07/14/19 07:54 Dose: 100 mls/hr Documented by: Insulin Aspart (Novolog) 0 unit SQ ACHS [facility]; Protocol Last Admin: 07/14/19 12:39 Dose: 2 unit Documented by: Insulin Aspart (Novolog) 25 unit SQ AC-TID [facility] Last Admin: 07/14/19 12:39 Dose: 25 unit Documented by: Insulin Detemir (Levemir) 80 unit SQ [facility] Last Admin: 07/13/19 20:09 Dose: 80 unit Documented by: Losartan Potassium (Cozaar) 100 mg PO DAILY [facility] Last Admin: 07/14/19 07:53 Dose: 100 mg Documented by: Melatonin (Melatonin) 5 mg PO [facility] Last Admin: 07/13/19 20:09 Dose: 5 mg Documented by: Metoprolol Tartrate (Lopressor) 50 mg PO BID [facility] Miscellaneous Information (Pneumonia Protocol Utilized) 1 each PO ONCE PRN PRN Reason: Per Protocol Non-Formulary Medication (Dulaglutide [Trulicity]) 1.5 mg SQ WEEKLY [facility] Sodium Chloride (Saline Flush) 10 ml IV BID [facility] Last Admin: 07/14/19 07:55 Dose: 10 ml Documented by: Physical examination: VITAL SIGNS: 97.7, 51, 16, 170 1073, 95% room air GENERAL: Sitting over a chair, awake, comfortable. EYES: Pupils equal. Conjunctiva normal. HEENT: External appearance of nose and ears normal, oral cavity grossly normal. NECK: JVD not raised; masses not palpable. HEART: First and second heart sounds are normal; no edema. LUNGS: Respiratory rate normal, decreased breath sounds. ABDOMEN: Soft, nontender, liver spleen not palpable, no masses palpable. PSYCH: Alert and oriented x3; mood and affect normal. INVESTIGATIONS, reviewed in the clinical context: D-dimer 0.89 pro calcitonin 0.0 to Chest CTA-negative for PE Blood work from [facility] shows: White count 7.6 hemoglobin 13.7 platelets 213 sodium 139 potassium 4.2 bun 20 creatinine 1.2 with a negative EKG tracing personally reviewed by me shows sinus rhythm proBNP 2-3 chest x-ray bilateral infiltrates Accu-Cheks ears show 309, 312, CRP 8.5 pro calcitonin 0.02 Chest x-ray film personally reviewed by me shows-basilar infiltrates Assessment: -Right lower lobe pneumonia, clinically improving -Pulmonary embolism ruled out -Diabetes mellitus type 2 uncontrolled with hyperglycemia -Hyperlipidemia -Essential hypertension-uncontrolled -Morbid obesity BMI 50.3 Plan: Discussed with the patient. Really doing well. Decreased amplitude. We'll discharge the patient home tomorrow. Hydralazine started today.
[2019-07-14 17:42] LABS: Glucose,Whole Blood 97 mg/dL (75-99)
[2019-07-14 20:29] LABS: Glucose,Whole Blood 219 mg/dL (75-99)
[2019-07-14] MEDS: MELATONIN 5 MG TABLET PO SCH (20:52)
[2019-07-14] MEDS: INSULIN DETEMIR (LEVEMIR) 100 UNIT/ML SYR SQ SCH (20:52)
[2019-07-14] MEDS: METOPROLOL TARTRATE 50 MG TAB PO SCH (20:53)
[2019-07-14 22:15] VITALS: RESP 18
[2019-07-15 04:40] VITALS: PULSE 57
[2019-07-15 07:05] LABS: Glucose,Whole Blood 105 mg/dL (75-99)
[2019-07-15] MEDS: INSULIN ASPART (NovoLOG) 100 UNIT/ML VIAL SQ SCH ×4 (07:07→12:38)
[2019-07-15 08:51] VITALS: BP 145/69; TEMP 98.3
[2019-07-15] MEDS ORDERED: FUROSEMIDE 40 MG TAB PO SCH (09:00)
[2019-07-15] MEDS ORDERED: ASPIRIN 81 MG PO SCH (09:00)
[2019-07-15] MEDS: amLODIPine 10 MG TAB PO SCH (09:18)
[2019-07-15] MEDS: hydrALAZINE HCL 25 MG TAB PO SCH (09:18)
[2019-07-15] MEDS: LOSARTAN 50 MG TAB PO SCH (09:18)
[2019-07-15] MEDS: METOPROLOL TARTRATE 50 MG TAB PO SCH (09:18)
[2019-07-15] MEDS: AZITHROMYCIN 500 MG TAB PO SCH (09:18)
[2019-07-15] MEDS: ATORVASTATIN 80 MG TAB PO SCH (09:18)
[2019-07-15] MEDS: ASCORBIC ACID 500 MG TAB PO SCH (09:18)
[2019-07-15] MEDS: ENOXAPARIN 40 MG/0.4 ML SYRINGE SQ SCH (09:19)
--- NOTE | 2019-07-15 10:47 | ECHOF ---
Referral Reason:LVF MEASUREMENTS -------- HEIGHT: 180.3 cm WEIGHT: 152.9 kg BP: RVIDd: 3.5 cm (< 3.3) IVSd: 1.5 cm (0.6 - 1.1) LVIDd: 4.8 cm (3.9 - 5.3) LVPWd: 1.6 cm (0.6 - 1.1) IVSs: 2.0 cm LVIDs: 3.0 cm LVPWs: 2.3 cm Ao Diam: 3.3 cm (2.0 - 3.7) AV Cusp: 2.0 cm (1.5 - 2.6) LA Diam: 3.8 cm (2.7 - 3.8) MV EXCURSION: 18.959 mm (> 18.000) MV EF SLOPE: 113 mm/s (70 - 150) EPSS: 0.5 cm MV E José Luis: 1.03 m/s MV DecT: 347 ms MV A José Luis: 0.66 m/s MV E/A Ratio: 1.55 RAP: 5.00 mmHg RVSP: 25.10 mmHg FINDINGS -------- Resting bradycardia (HR<60bpm). This was a technically difficult study with suboptimal views. The left ventricular size is normal. There is moderate concentric left ventricular hypertrophy. O verall left ventricular systolic function is normal with, an EF between 55 - 60 %. The right ventricle is mildly enlarged. The left atrial size is normal. The right atrial size is normal. Lumason used Unable to visualize the septum. The aortic valve is trileaflet and appears structurally normal. The mitral valve is normal. There is trace mitral regurgitation. The tricuspid valve appears structurally normal. Mild tricuspid regurgitation present. Right vent ricular systolic pressure is normal at < 35 mmHg. There is no pulmonic regurgitation present. The aortic root size is normal. IVC Not well visulized. There is no pericardial effusion. CONCLUSIONS -------- 1. Resting bradycardia (HR<60bpm). 2. This was a technically difficult study with suboptimal views. 3. The left ventricular size is normal. 4. There is moderate concentric left ventricular hypertrophy. 5. Overall left ventricular systolic function is normal with, an EF between 55 - 60 %. 6. The right ventricle is mildly enlarged. 7. The left atrial size is normal. 8. The right atrial size is normal. 9. Lumason used 10. Unable to visualize the septum. 11. The aortic valve is trileaflet and appears structurally normal. 12. The mitral valve is normal. 13. There is trace mitral regurgitation. 14. The tricuspid valve appears structurally normal. 15. Mild tricuspid regurgitation present. 16. Right ventricular systolic pressure is normal at < 35 mmHg. 17. There is no pulmonic regurgitation present. 18. The aortic root size is normal. 19. IVC Not well visulized. 20. There is no pericardial effusion. [employer]: Clover Jay RDCS
[2019-07-15 12:36] LABS: Glucose,Whole Blood 165 mg/dL (75-99)
--- NOTE | 2019-07-15 13:19 | P.PN ---
Subjective Progress Note Date: 07/15/19 This is a 63-year-old gentleman who presented to the hospital mainly with symptoms of shortness of breath. He is currently being treated for pneumonia. Patient was seen in consultation by Dr. Narvaez over the weekend, who did not feel that the patient had any evidence on this admission of congestive cardiac failure. His echo showed a normal LV function. A CTA of the chest was performed which revealed no evidence of pulmonary embolism, bilateral groundglass a pacer these worse on the right were noted. Although the patient did test negative for: Head, he is still being treated as a possible Covid. Hemodynamically he is stable, from the cardiac standpoint we will follow him after today on an as-needed basis only. Objective - Vital Signs Vital signs: Vital Signs Temp 98.3 F 07/15/19 08:48 Pulse 57 L 07/15/19 08:48 Resp 18 07/15/19 08:48 BP 145/69 07/15/19 08:48 Pulse Ox 98 07/15/19 08:48 Intake & Output 07/14/19 07/15/19 07/15/19 18:59 06:59 18:59 Intake Total 720 450 360 Balance 720 450 360 Weight 153.9 kg 153 kg Intake: Oral 720 450 360 Other: Voiding Method Toilet Toilet # Voids 1 - Exam Physical examination: Gen: This is a 63-year-old morbidly obese male. He has significant coronary appears to be in no acute distress. No respiratory distress is noted. VS: afebrile, heart rate 45 blood pressure 142/70 pulse ox 94% on room air. HEENT: Head is atraumatic, normocephalic. Pupils equal, round. Sclerae is anicteric. NECK: Supple. No JVD. No lymphadenopathy. No thyromegaly. LUNGS: Decreased breath sounds bilaterally No wheezes or rhonchi. No intercostal retractions. HEART: Regular rate and rhythm. No murmur. No chest wall tenderness. ABDOMEN: Soft. Bowel sounds are present. No masses. No tenderness. EXTREMITIES: No pedal edema. No calf tenderness. NEUROLOGICAL: Patient is awake, alert and oriented x3. Cranial nerves 2 through 12 are grossly intact. - Labs CBC & Chem 7: 07/14/19 07:24 07/14/19 07:24 Labs: Abnormal Lab Results - Last 24 Hours (Table) 07/14/19 07/15/19 07/15/19 Range/Units 20:28 07:03 12:32 POC Glucose (mg/dL) 219 H 105 H 165 H (75-99) mg/dL Microbiology - Last 24 Hours (Table) 07/13/19 07:58 Blood Culture - Preliminary Blood No Growth after 48 hours 07/14/19 07:45 Gram Stain - Preliminary Sputum Sputum Culture - Preliminary Assessment and Plan Plan: Assessment and plan: #1 Pneumonia, CTA of the chest revealed groundglass [place] right greater than left #2 No clinical evidence of heart failure #3 Elevated d-dimer, CT of the chest negative for pulmonary embolism #4 Diabetes mellitus type 2 #5 Hypertension #6 Hyperlipidemia #7 Morbid obesity #8 Obstructive sleep apnea Plan From cardiology's perspective, we do not feel that there is any evidence of congestive cardiac failure, we will follow this patient along with you now on an as-needed basis only, please don't hesitate to call if you have any questions at all. DNP note has been reviewed, I agree with a documented findings and plan of care. Patient was seen and examined.
--- NOTE | 2019-07-15 14:23 | P.PN ---
Subjective Progress Note Date: 07/15/19 Principal diagnosis: Limited right lower lobe pneumonia with some mild hypoxic respiratory failure A 66-year-old male patient, morbidly obese of the chest from an outside hospital for evaluation of shortness of breath. The patient is morbidly obese. He has a BMI 50. He has obstructive sleep apnea maintained on CPAP. He has also diabetes, hypertension and hyperlipidemia. No home oxygen. He came into the hospital because of some increased shortness of breath and mild cough. No fever. No chills. No pleurisy. No hemoptysis. Chest x-ray showed some limited infiltration of the right lung base. His oxygen saturations dropped down to 84%. He had some mild chronic swelling lower extremities. Covert 19 evaluation was done to was negative. The patient was given Rocephin and Zithromax. Subsequent chest x-ray from today shows improvement in the right lower lobe pulmonary infiltrates and the patient is back on room air oxygen. No chest pain. No other new complaints otherwise for now. No history of asthma. Most of emphysema. No chronic lung disease or disorder. The blood work showed a low progesterone level of 0.02. EKG was within normal limits. White cell count was at 7.6. Electrolytes were all within normal limits. The d-dimer is at 0.89. ProBNP level was 247. On 07/15/2019 patient seen in follow-up on selective care unit, he is calm and comfortable, in no acute distress, lung sounds are clear on today's exam, room air pulse ox is 98%, she is feeling much better, no acute events overnight, no fever or chills, blood culture and sputum culture revealed no growth so far, urine Gram stain revealed many gram-positive cocci and many gram-negative bacilli, final culture is pending, patient is covered with Rocephin and Zithromax. The echocardiogram has been reviewed showing EF of 55-60% trace MR, mild TR, no pulmonary hypertension with right-sided pressures of less than 35 mmHg. Events overnight, patient is doing well, she is being considered for discharge home today Objective - Vital Signs Vital signs: Vital Signs Temp 98.3 F 07/15/19 08:48 Pulse 57 L 07/15/19 08:48 Resp 18 07/15/19 08:48 BP 145/69 07/15/19 08:48 Pulse Ox 98 07/15/19 08:48 Intake & Output 07/14/19 07/15/19 07/15/19 18:59 06:59 18:59 Intake Total 720 450 360 Balance 720 450 360 Weight 153.9 kg 153 kg Intake: Oral 720 450 360 Other: Voiding Method Toilet Toilet # Voids 1 - Exam GENERAL EXAM: Alert, very pleasant, 63-year-old white male, on room air with a pulse ox of 98% comfortable in no apparent distress. HEAD: Normocephalic/atraumatic. EYES: Normal reaction of pupils, equal size. Conjunctiva pink, sclera white. NOSE: Clear with pink turbinates. THROAT: No erythema or exudates. NECK: No masses, no JVD, no thyroid enlargement, no adenopathy. CHEST: No chest wall deformity. Symmetrical expansion. LUNGS: Equal air entry with no crackles, wheeze, rhonchi or dullness. CVS: Regular rate and rhythm, normal S1 and S2, no gallops, no murmurs, no rubs ABDOMEN: Soft, nontender. No hepatosplenomegaly, normal bowel sounds, no guarding or rigidity. EXTREMITIES: No clubbing, no edema, no cyanosis, 2+ pulses and upper and lower extremities. MUSCULOSKELETAL: Muscle strength and tone normal. SPINE: No scoliosis or deformity SKIN: No rashes CENTRAL NERVOUS SYSTEM: Alert and oriented -3. No focal deficits, tone is normal in all 4 extremities. PSYCHIATRIC: Alert and oriented -3. Appropriate affect. Intact judgment and insight. - Labs CBC & Chem 7: 07/14/19 07:24 07/14/19 07:24 Labs: Abnormal Lab Results - Last 24 Hours (Table) 07/14/19 07/15/19 07/15/19 Range/Units 20:28 07:03 12:32 POC Glucose (mg/dL) 219 H 105 H 165 H (75-99) mg/dL Microbiology - Last 24 Hours (Table) 07/13/19 07:58 Blood Culture - Preliminary Blood No Growth after 48 hours 07/14/19 07:45 Gram Stain - Preliminary Sputum Sputum Culture - Preliminary Assessment and Plan Plan: Assessment: 1 limited right lower lobe pneumonia with some mild hypoxic respiratory failure, recovered and the patient's follow-up chest x-ray shows improvement of the right lower lobe infiltrates and the patient is currently on room air oxygen. 2 acute hypoxic respiratory failure, recovered 3 morbid obesity with a BMI 50.1 4 obstructive sleep apnea maintained on CPAP 5 hypertension 6 hyperlipidemia 7 diabetes mellitus Plan: Clinically patient stable, he is improving, afebrile, no fever or chills, he is on room air, his pulse ox is around 98%, recent activity as tolerated, patient has been treated with combination of Rocephin and Zithromax. No acute events overnight, patient can be considered for discharge home today on oral antibiotics with outpatient follow-up in the office with Dr. Rothman in 1-2 weeks I performed a history & physical examination of the patient and discussed their management with my nurse practitioner, Samantha Braden. I reviewed the nurse practitioner's note and agree with the documented findings and plan of care. Lung sounds are positive for diminished breath sounds. The findings and the impression was discussed with the patient. I attest to the documentation by the nurse practitioner. Time with Patient: Less than 30
--- NOTE | 2019-07-15 20:08 | P.DS ---
Providers Date of admission: 07/13/19 07:40 Expected date of discharge: 07/15/19 Attending physician: Richard Anthony Consults: 07/13/19 07:42 Consult Physician Urgent Consulting Provider: [place] Ulrich Consult Reason/Comments: chf Do you want consulting provider notified?: Yes 07/13/19 17:06 Consult Physician Routine Consulting Provider: Jimmie Rothman Consult Reason/Comments: Shortness of breath with pulmonary infiltrate Do you want consulting provider notified?: Yes Primary care physician: Lani Pierre [facility] Course: Chief Complaint: Shortness of breath History of presenting complaint: This is a pleasant [address] Teresita Pierre. Chronic stable medical conditions include diabetes mellitus type 2, hypertension, hyperlipidemia, obstructive sleep apnea uses CPAP machine. For 2 days patient has been getting short winded slowly getting progressive. Yesterday evening the power went out and uses CPAP. Became more short of breath. Presented to outside hospital. Patient has a very mild cough. And empiric of some scleral from this morning. No fever no chills. Appetite is okay. Has a bowel movement. Denies any pain. Patient presented to [facility] where he was transferred here. X-ray of the other facility showed bilateral infiltrates. Had oxygen saturation of 84%. Patient has mild chronic lower extremity swelling. Patient was tested negative for COVID-19. This morning feels a bit better. Did tolerate some diet. Admitted with-pneumonia. Started on ceftriaxone and Zithromax. Today-Doing well. No new issues. Comfortable. Respiratory symptoms really resolved. Blood pressure control. Discussed with the patient. Consultations: Dr. Rothman from pulmonary Dr. Lynne Syed from cardiology Physical examination: VITAL SIGNS: 98.3, 53, 16, 145/69, 98% on room air GENERAL: Sitting over a chair, awake, comfortable. EYES: Pupils equal. Conjunctiva normal. HEENT: External appearance of nose and ears normal, oral cavity grossly normal. NECK: JVD not raised; masses not palpable. HEART: First and second heart sounds are normal; no edema. LUNGS: Respiratory rate normal, decreased breath sounds. ABDOMEN: Soft, nontender, liver spleen not palpable, no masses palpable. PSYCH: Alert and oriented x3; mood and affect normal. INVESTIGATIONS, reviewed in the clinical context: D-dimer 0.89 pro calcitonin 0.0 to Chest CTA-negative for PE Blood work from [facility] shows: White count 7.6 hemoglobin 13.7 platelets 213 sodium 139 potassium 4.2 bun 20 creatinine 1.2 with a negative EKG tracing personally reviewed by me shows sinus rhythm proBNP 2-3 chest x-ray bilateral infiltrates Accu-Cheks ears show 309, 312, CRP 8.5 pro calcitonin 0.02 Chest x-ray film personally reviewed by me shows-basilar infiltrates Assessment: -Right lower lobe pneumonia, POA -Pulmonary embolism ruled out -Diabetes mellitus type 2 uncontrolled with hyperglycemia -Hyperlipidemia -Essential hypertension-uncontrolled -Morbid obesity BMI 50.3 Disposition: Home Patient Condition at Discharge: Stable Plan - Discharge Summary Discharge Rx Participant: No New Discharge Prescriptions: New hydrALAZINE HCL [Apresoline] 25 mg PO TID #90 tab Losartan [Cozaar] 100 mg PO DAILY #60 tab amLODIPine [Norvasc] 10 mg PO DAILY #30 tab Azithromycin [Zithromax] 500 mg PO DAILY #3 tab Continue Furosemide [Lasix] 40 mg PO DAILY Atorvastatin [Lipitor] 80 mg PO DAILY Insulin Glargine,Hum.rec.anlog [Toujeo Solostar] 90 units SQ HS Dulaglutide [Trulicity] 1.5 mg SQ SA Insulin Lispro [humaLOG Kwikpen] 25 unit SQ AC-TID Aspirin EC [Ecotrin Low Dose] 81 mg PO DAILY Changed Metoprolol Tartrate [Lopressor] 50 mg PO BID #0 Discontinued amLODIPine BESYLATE/BENAZEPRIL [amLODIPine BESYLATE/BENAZEPRIL 10-20 mg] 1 cap PO DAILY Discharge Medication List Atorvastatin [Lipitor] 80 mg PO DAILY 08/03/16 [History] Furosemide [Lasix] 40 mg PO DAILY 08/03/16 [History] Aspirin EC [Ecotrin Low Dose] 81 mg PO DAILY 07/13/19 [History] Dulaglutide [Trulicity] 1.5 mg SQ SA 07/13/19 [History] Insulin Glargine,Hum.rec.anlog [Toujeo Solostar] 90 units SQ HS 07/13/19 [History] Insulin Lispro [humaLOG Kwikpen] 25 unit SQ AC-TID 07/13/19 [History] Azithromycin [Zithromax] 500 mg PO DAILY #3 tab 07/15/19 [Rx] Losartan [Cozaar] 100 mg PO DAILY #60 tab 07/15/19 [Rx] Metoprolol Tartrate [Lopressor] 50 mg PO BID #0 07/15/19 [Rx] amLODIPine [Norvasc] 10 mg PO DAILY #30 tab 07/15/19 [Rx] hydrALAZINE HCL [Apresoline] 25 mg PO TID #90 tab 07/15/19 [Rx] Follow up Appointment(s)/Referral(s): Lani Pierre MD [Primary Care Provider] - 1-2 days Jimmie Rothman MD [STAFF PHYSICIAN] - 1 Week Patient Instructions/Handouts: Heart Failure (DC), Community Acquired Pneumonia (DC) Discharge Disposition: HOME SELF-CARE
--- NOTE | 2019-07-17 10:22 | CDI ---
Documentation Clarification Form Date: 07/17/19 From: Alisha Jane Phone: If you have a question about this query, please contact Lilibeth Lieberman, Gamemaster at [phone] between 8am and 5pm. Admit Date: 07/13/19 Discharge Date: 07/15/19 Patient Name: TOMAS GREWAL Visit Number: [id number] ATTENTION: The Clinical Documentation Specialists (CDI) and [facility] Coding Staff appreciate your assistance in clarifying documentation. Please respond to the clarification below the line at the bottom and electronically sign. The CDI & [facility] Coding staff will review the response and follow-up if needed. Please note: Queries are made part of the Legal Health Record. If you have any questions, please contact the author of this message via ITS. Dear Dr. Richard Anthony, CHF is documented in the ED note. Per cardiology consult no acute CHF. History/Risk Factors: Morbid obesity, emphysema, DM Type II-hyperglycemia, obstructive sleep apnea Clinical Indicators: Patient transferred with concern for viral pneumonia. Has SOB & chronic leg swelling. VS/Pulse OX: 10/12; p-55, R-18, BP-183/65, O2 sat-100 BNP: 07/13-247 Echocardiogram Results: There is moderate concentric left ventricular hypertrophy. Overall left ventricular systolic function is normal with, an EF between 55 - 60 %. Chest X Ray: 07/12- BORDERLINE CARDIOMEGALY. PATCHY RIGHT-SIDED AIRSPACE DISEASE, LIKELY REPRESENTING PNEUMONIA. Treatment: 07/12-IV Lasix 40mg IV, 07/14-Lasix 40 mg po daily (home med too) In your professional opinion, can you please clarify the type of chronic CHF if known? Chronic Systolic Heart Failure Chronic Diastolic Heart Failure Chronic Systolic & Diastolic Heart Failure Unable to Determine Other, please specify NO CHF MTDD
[2019-07-20] MEDS ORDERED: NON FORMULARY DRUG (Dulaglutide [Trulicity] 1.5 MG) SQ SCH (09:00)
== END 2019-07-15 13:48 | disposition home or self-care (01) | DRG 193 ==
LOC: EC 07:20 → 3SCARD 07:40
PROVIDERS: ADMIT Hospitalist; ATTEND Hospitalist
DX: J18.9 Pneumonia, unspecified organism (principal); J96.01 Acute respiratory failure with hypoxia; Z68.43 Body mass index [BMI] 50.0-59.9, adult; I11.0 Hypertensive heart disease with heart failure; I50.9 Heart failure, unspecified; E66.01 Morbid (severe) obesity due to excess calories; J43.9 Emphysema, unspecified; E11.65 Type 2 diabetes mellitus with hyperglycemia; Z79.4 Long term (current) use of insulin; Z20.828 Contact with and (suspected) exposure to other viral communicable diseases; G47.33 Obstructive sleep apnea (adult) (pediatric); E78.5 Hyperlipidemia, unspecified; Z79.82 Long term (current) use of aspirin; Z79.899 Other long term (current) drug therapy; Z71.3 Dietary counseling and surveillance; Z87.01 Personal history of pneumonia (recurrent); Z90.49 Acquired absence of other specified parts of digestive tract; Z98.890 Other specified postprocedural states; Z80.41 Family history of malignant neoplasm of ovary; Z82.49 Family history of ischemic heart disease and other diseases of the circulatory system
CPT/HCPCS: 36415; 71045; 71275; 80053; 82728; 83605; 83615; 83735; 83880; 84145; 85025; 85379; 86140; 87040; 87070; 87205; 87635; 93005; 93306; 94760; 99285